=== PATIENT | male | born 1995 | race Caucasian/White ===

== ENCOUNTER 2025-03-04 12:59 | Emergency (ER) | payer SELFPAY ==
[~2025-03-04] VITALS: Ht 167.6 cm; Wt 68.0 kg
[2025-03-04 13:09] VITALS: O2SAT 98
[2025-03-04] MEDS ORDERED: DEXAMETHASONE 2MG TABLET PO ONE (14:00)
[2025-03-04] MEDS ORDERED: DIPH25TA62 MT (14:05)
[2025-03-04] MEDS ORDERED: EPIN0.3P3 IM (14:05)
[2025-03-04] MEDS: DEXAMETHASONE 4MG TABLET PO SCH (14:14)
[2025-03-04] MEDS: FAMOTIDINE 20MG TABLET PO ONE (14:14)
[2025-03-04 14:20] VITALS: BP 99/66; PULSE 91; RESP 16; TEMP 36.6; O2SAT 100
== END 2025-03-04 14:21 | disposition home or self-care (01) ==
LOC: ER 12:59
DX: L50.8 Other urticaria (principal); Z55.6 Problems related to health literacy; Z79.52 Long term (current) use of systemic steroids
CPT/HCPCS: 99283; J8540